=== PATIENT | male | born 1995 | race Two or more races ===

== ENCOUNTER 2017-06-05 23:19 | Emergency (ER) | payer MEDICAID, OTHER ==
[~2017-06-05] VITALS: Ht 188 cm; Wt 132.4 kg
[~2017-06-05 23:19] MED LIST: IBUPROFEN600 MG ORAL; MECLIZINE HCL25 MG ORAL; NKM; TRAMADOL HCL50 MG ORAL; ZOFRAN4 M1 ORAL
[2017-06-06] MEDS ORDERED: BACTRIM DS TAB1 EAC1 ORAL
[2017-06-06] MEDS ORDERED: BACTROBAN CR1 APPLIC TOPIC
--- NOTE | 2017-06-06 00:01 | Emergency Room Report ---
History of Present Illness General Chief Complaint: Skin Rash/Abscess Source: Patient Present Illness HPI Is a 22-year-old male with no past medical history. He presents with a rash to his face. He has a full vergara. Has been ongoing for the last 3-4 days. Itching. No fever or chills but no nausea no vomiting. Never had this problem before. Allergies: Coded Allergies: No Known Allergies (Unverified , 02/25/14) Patient History Past Medical History: see triage record, old chart reviewed Past Surgical History: none Pertinent Family History: none Social History: Denies: smoking Immunizations: other Reviewed Nursing Documentation: PMH: Agreed, PSxH: Agreed Nursing Documentation-PMH Past Medical History: No Stated History Hx Neurological Problems: Yes - BRAIN CYST, 2011 Review of Systems Eye: Denies: blurred vision, eye pain ENT: Denies: ear pain, nose congestion, throat swelling Respiratory: Denies: cough, shortness of breath Cardiovascular: Denies: chest pain, palpitations Gastrointestinal: Denies: abdominal pain, diarrhea, nausea, vomiting Musculoskeletal: Denies: back pain, joint pain Skin: Denies: rash Neurological: Denies: headache, numbness Endocrine: Denies: increased thirst, increased urine Hematologic/Lymphatic: Denies: easy bruising All Other Systems: negative except mentioned in HPI Physical Exam Vital Signs Date Time Temp Pulse Resp B/P Pulse Ox O2 Delivery O2 Flow Rate FiO2 06/05/17 23:38 98.2 84 18 124/79 99 Room Air vitals normal Sp02 EP Interpretation: reviewed, normal General Appearance: well appearing, no apparent distress, alert Head: normocephalic, atraumatic Eyes: bilateral eye EOMI, bilateral eye PERRL ENT: hearing grossly normal, normal pharynx, other - folliculitis of face Neck: full range of motion, supple, no meningismus Respiratory: chest non-tender, lungs clear, normal breath sounds Cardiovascular #1: regular rate, rhythm, no murmur Gastrointestinal: normal bowel sounds, non tender, no mass, no organomegaly, no bruit, non-distended Musculoskeletal: back normal, gait/station normal, normal range of motion Psychiatric: mood/affect normal Skin: warm/dry Medical Decision Making Diagnostic Impression: Primary Impression: Folliculitis barbae ER Course Patient with folliculitis of the vergara area. Most likely MRSA. We'll discharge home with antibiotics. No abscess to I&D. Last Vital Signs Date Time Temp Pulse Resp B/P Pulse Ox O2 Delivery O2 Flow Rate FiO2 06/05/17 23:38 98.2 84 18 124/79 99 Room Air Status: unchanged Disposition: HOME, SELF-CARE Condition: Stable Scripts Trimethoprim/Sulfamethoxazole 160/800* (BACTRIM DS TABLET*) 1 Each Tablet 1 TAB ORAL Q12H, #14 TAB 0 Refills Prov: CHEVY GARCIA M.D. 06/06/17 Mupirocin Calcium (Bactroban) 15 Gm Cream..g. 1 APPLIC TOPIC THREE TIMES A DAY, #30 GM Prov: CHEVY GARCIA M.D. 06/06/17 Additional Instructions: Follow up with your doctor in 7 days for recheck. Return if worse. CHEVY GARCIA M.D. Jun 06, 2017 00:01
[2017-06-06 00:19] VITALS: BP 125/79
[2017-06-06 00:20] VITALS: BP 125/79
== END 2017-06-06 00:20 | disposition home or self-care (01) ==
LOC: EMR 23:55
DX: L73.8 Other specified follicular disorders (principal)
CPT/HCPCS: 99284

== ENCOUNTER 2018-08-11 13:36 | Emergency (ER) | payer MEDICAID, OTHER ==
[~2018-08-11] VITALS: Ht 185.4 cm; Wt 136.1 kg
[~2018-08-11 13:36] MED LIST changes: +BACTRIM DS TAB1 EAC1 ORAL; +BACTROBAN CR1 APPLIC TOPIC
--- NOTE | 2018-08-11 14:34 | Emergency Room Report ---
History of Present Illness General Chief Complaint: General Complaint Source: Patient Present Illness HPI 23-year-old male presents emergency department complaining of constant 9 out of 10 in severity pressure/tightness headache in the forehead area 3 days. Patient also reports significant panic attack while driving 2 days ago. Patient states he's been having moderate anxiety regarding his panic attack as well as previous diagnosis of cyst in the brain over 6 years ago. The denies fevers, chills, recent head injury, denies nausea or vomiting. pt. denies hx of headaches. reports increased stress. pt. denies drug use. denies paresthesias, or unilateral weakness loss of gross motor movements. reports tunnel vision durring panic attack on thursday denies recurrent eye symptoms, denies loss of vision, floaters, flashing lights, blurred vision. Denies neck or back pain. pt. describes HILL as a tight band across the front/ forehead. Took tylenol with no relief of his symptoms. Allergies: Coded Allergies: No Known Allergies (Unverified , 02/25/14) Patient History Past Medical History: see triage record Past Surgical History: none Pertinent Family History: none Reviewed Nursing Documentation: PMH: Agreed; PSxH: Agreed Nursing Documentation-PMH Hx Neurological Problems: Yes Review of Systems All Other Systems: negative except mentioned in HPI Physical Exam Vital Signs Date Time Temp Pulse Resp B/P (MAP) Pulse Ox O2 Delivery O2 Flow Rate FiO2 08/11/18 13:44 98.7 90 20 158/71 97 Room Air 98.8 Sp02 EP Interpretation: reviewed, normal General Appearance: alert, GCS 15, non-toxic, mild distress Head: normocephalic, atraumatic Eyes: bilateral eye normal inspection, bilateral eye PERRL ENT: hearing grossly normal, normal voice Neck: full range of motion Respiratory: lungs clear, normal breath sounds, no respiratory distress, speaking full sentences Cardiovascular #1: regular rate, rhythm Musculoskeletal: back normal, gait/station normal, normal range of motion, non- tender Neurologic: alert, oriented x3, responsive, motor strength/tone normal, sensory intact, normal gait, speech normal, other - no pronator drift, no facial droop, no cerebellar abnormalities, no nystagmus, grossly normal Psychiatric: judgement/insight normal, anxious - overly anxious regarding his symptoms, and fear of recurring panic attack . Skin: normal color, no rash, warm/dry, well hydrated Medical Decision Making PA Attestation Dr. arguelles is my supervising Physician whom patient management has been discussed with. Diagnostic Impression: Primary Impression: Tension type headache Qualified Codes: G44.219 - Episodic tension-type headache, not intractable Additional Impression: Anxiousness ER Course 23-year-old male presents emergency department complaining of constant 9 out of 10 in severity pressure/tightness headache in the forehead area 3 days. Patient also reports significant panic attack while driving 2 days ago. Patient states he's been having moderate anxiety regarding his panic attack as well as previous diagnosis of cyst in the brain over 6 years ago. The denies fevers, chills, recent head injury, denies nausea or vomiting. pt. denies hx of headaches. reports increased stress. pt. denies drug use. denies paresthesias, or unilateral weakness loss of gross motor movements. reports tunnel vision durring panic attack on thursday denies recurrent eye symptoms, denies loss of vision, floaters, flashing lights, blurred vision. Denies neck or back pain. pt. describes HILL as a tight band across the front/ forehead. Took tylenol with no relief of his symptoms. Ddx considered but are not limited to migraine, SAH, Pseudomotor Cerebri,, Mass lesion, Cluster HILL, Tension HILL, Post lumbar puncture HILL , anxiety just to name a few. Vital signs: are WNL, pt. is afebrile H&PE are most consistent with Tension HILL and Anxiety regarding his symptoms. no focal neuro deficits. ORDERS: - none required at this time, dx is clinical. ED INTERVENTIONS: - Reglan PO -Excedrin Migraine PO -Ativan PO pt reports his symptoms have improved. Pt. has no active rx's in the last 6 months for controlled substances according to [facility] report -I do not identify an emergent condition at this time. With current presentation , pt. is stable for close outpatient follow up and conservative treatment. D/ w pt. to return promptly to ED with worsening or new symptoms.- Pt. verbalizes understanding and agreement with proposed treatment plan.proposed treatment plan. DISCHARGE: At this time pt. is stable for d/c to home. Will provide printed patient care instructions, and any necessary prescriptions. Care plan and follow up instructions have been discussed with the patient prior to discharge. Last Vital Signs Date Time Temp Pulse Resp B/P (MAP) Pulse Ox O2 Delivery O2 Flow Rate FiO2 08/11/18 13:44 98.7 90 20 158/71 97 Room Air 98.8 Disposition: HOME, SELF-CARE Condition: Stable Scripts Lorazepam* (ATIVAN*) 0.5 Mg Tablet 0.5 MG ORAL Q8HR, #5 TAB Prov: Sarai Asencio 08/11/18 Aspirin/Acetaminophen/Caffeine (EXCEDRIN MIGRAINE GELTAB) 1 Each Tablet 1 EACH PO Q6HR, #30 TAB Prov: Sarai Asencio 08/11/18 Referrals: [facility],REFERRING (PCP) Departure Forms: Return to Work Return to Work Date: Aug 13, 2018 Work Restrictions: None Return to Full Activity: Aug 13, 2018 Patient Instructions: Generalized Anxiety Disorder, Tension Headache Additional Instructions: Take medications as directed. Follow up with a Primary Care Provider in 3-5 days, even if your symptoms have resolved. --Please review list of primary care clinics, if you do not already have a primary care provider Return sooner to ED if new symptoms occur, or current symptoms become worse. Do not drink alcohol, drive, or operate heavy machinery while taking Ativan as this may cause drowsiness. - Please note that this Emergency Department Report was dictated using [employer] process administrator technology software, occasionally this can lead to erroneous entry secondary to interpretation by the dictation equipment. Sarai Asencio Aug 11, 2018 14:34
[2018-08-11] MEDS ORDERED: Metoclopramide 10mg/2ml Inj IM ONE (14:45)
[2018-08-11] MEDS ORDERED: Excedrin Migraine tab ORAL ONE (14:45)
[2018-08-11] MEDS ORDERED: LORazepam 1mg tab ORAL ONE (14:45)
[2018-08-11 16:07] VITALS: BP 147/89
[2018-08-11] MEDS ORDERED: ATIVAN0.5 MG ORAL (16:25)
[2018-08-11] MEDS ORDERED: EXCEDRIN MIGRA1 EACH PO (16:25)
[2018-08-11 16:35] VITALS: BP 147/89
== END 2018-08-11 16:35 | disposition home or self-care (01) ==
LOC: EMR 14:00
DX: G44.209 Tension-type headache, unspecified, not intractable (principal); F41.9 Anxiety disorder, unspecified
CPT/HCPCS: 99283; J2765

== ENCOUNTER 2019-12-10 12:47 | Emergency (ER) | payer OTHER ==
[~2019-12-10] VITALS: Ht 185.4 cm; Wt 111.6 kg
[~2019-12-10 12:47] MED LIST changes: +ATIVAN0.5 MG ORAL; +EXCEDRIN MIGRA1 EACH PO
--- NOTE | 2019-12-10 13:02 | NUR ---
ED Nurse Note: Pt walked in from home c/o left foot pain and swelling x 2 days. Pt said he ran 2 miles in non-running shoes. Pt denies trauma. Respirations even and unlabored on room air. Vitals stable as documented.
--- NOTE | 2019-12-10 13:11 | Emergency Room Report ---
History of Present Illness General Chief Complaint: Lower Extremity Injury Source: Patient Present Illness HPI 24-year-old male presents to the emergency department complaining of 7 out of 10 severity pain localized to the left lateral aspect of the left foot x2 days. Patient reports acute onset after running 2 miles in shoes that were a flat bottom and not specific running shoes. Patient reports pain was more severe the next day he states he has pain with attempts to ambulate or bear weight. He denies appreciable trauma or fall otherwise. Denies bruising, erythema, open wounds. Denies numbness tingling or loss of sensation or gross motor movements of the extremity, Denies calf pain. Has not taken anything for his pain. Allergies: Coded Allergies: No Known Allergies (Unverified , 02/25/14) Patient History Past Medical History: see triage record Past Surgical History: none Pertinent Family History: none Reviewed Nursing Documentation: PMH: Agreed; PSxH: Agreed Nursing Documentation-PMH Past Medical History: No Stated History Hx Neurological Problems: Yes Review of Systems All Other Systems: negative except mentioned in HPI Physical Exam Vital Signs Date Time Temp Pulse Resp B/P (MAP) Pulse Ox O2 Delivery O2 Flow Rate FiO2 12/10/19 12:56 98.1 87 16 141/84 (103) 95 Room Air Sp02 EP Interpretation: reviewed, normal General Appearance: no apparent distress, alert, GCS 15, non-toxic Head: normocephalic, atraumatic Eyes: bilateral eye normal inspection, bilateral eye PERRL ENT: hearing grossly normal, normal voice Neck: full range of motion Respiratory: lungs clear, normal breath sounds, speaking full sentences Cardiovascular #1: regular rate, rhythm, normal capillary refill Cardiovascular #2: 2+ dorsalis pedis (L) Musculoskeletal: normal range of motion, gait/station normal, tender - Lateral aspect of the left foot, plantar surface ttp, no heel ttp. no swelling or bruising. no visible obvious deformity. Neurologic: alert, motor strength/tone normal, oriented x3, sensory intact, responsive, speech normal Psychiatric: judgement/insight normal Skin: normal color, normal inspection Medical Decision Making PA Attestation Dr. Ross is my supervising Physician whom patient management has been discussed with. Diagnostic Impression: Primary Impression: Sprain of foot, left Qualified Codes: S93.602A - Unspecified sprain of left foot, initial encounter ER Course 24-year-old male presents to the emergency department complaining of 7 out of 10 severity pain localized to the left lateral aspect of the left foot x2 days. Patient reports acute onset after running 2 miles in shoes that were a flat bottom and not specific running shoes. Patient reports pain was more severe the next day he states he has pain with attempts to ambulate or bear weight. He denies appreciable trauma or fall otherwise. Denies bruising, erythema, open wounds. Denies numbness tingling or loss of sensation or gross motor movements of the extremity, Denies calf pain. Has not taken anything for his pain. Ddx considered but are not limited to Fracture, dislocation, contusion, Sprain/ Strain/Spasm, Plantar fasciitis, tendonitis just to name a few. Vital signs: are WNL, pt. is afebrile H&PE are most consistent with musculoskeletal injury will perform imaging to r/ o fractures/dislocations. ORDERS: - X-ray Left Foot 3 views - negative for fx, Dislocation, or significant soft tissue injury, per preliminary read in ED, and signed by ALMA Asencio , my supervising physician has reviewed, and agrees with my interpretation. ED INTERVENTIONS: - IBU 600mg PO -Jaya wrap applied to the left foot by satellite technician. Pt. remains neurovascularly intact. -Patient is provided with crutches and instructed on their use DISCHARGE: At this time pt. is stable for d/c to home. Will provide printed patient care instructions, and any necessary prescriptions. Care plan and follow up instructions have been discussed with the patient prior to discharge. Other X-Ray Diagnostic Results Other X-Ray Diagnostic Results : X-Ray ordered: Left Foot # of Views/Limited Vs Complete: 3 View Indication: Pain EP Interpretation: Yes ALMA Xray: Interpretation reviewed, by supervising MD, and agrees with findings. Interpretation: no dislocation, no soft tissue swelling, no fractures Impression: No acute disease Electronically Signed by: Sarai Asencio PA-C Last Vital Signs Date Time Temp Pulse Resp B/P (MAP) Pulse Ox O2 Delivery O2 Flow Rate FiO2 12/10/19 12:56 98.1 87 16 141/84 (103) 95 Room Air Status: improved Disposition: HOME, SELF-CARE Condition: Stable Scripts Ibuprofen* (MOTRIN*) 600 Mg Tablet 600 MG ORAL THREE TIMES A DAY, #30 TAB 0 Refills Prov: Sarai Asencio 12/10/19 Departure Forms: Return to Work Return to Work Date: Dec 13, 2019 Work Restrictions: No Heavy Lifting, No Prolonged Standing Other Restrictions: light duty. May return Sooner if Symptoms have resolved. Return to Full Activity: Dec 17, 2019 Patient Instructions: Foot Sprain Additional Instructions: Take medications as directed. Follow up with a Primary Care Provider in 3-5 days, even if your symptoms have resolved. Return sooner to ED if new symptoms occur, or current symptoms become worse. - Please note that this Emergency Department Report was dictated using [employer] master technology software, occasionally this can lead to erroneous entry secondary to interpretation by the dictation equipment. Sarai Asencio Dec 10, 2019 13:11
[2019-12-10] MEDS ORDERED: IBUPROFEN600 MG ORAL (14:14)
--- NOTE | 2019-12-10 14:20 | NUR ---
ER DISCHARGE NOTE: Patient is cleared to be discharged per ERMD, pt is aox4, on room air, with stable vital signs as documented. pt was given dc and prescription instructions and able to verbalize understanding, pt id band removed. pt's ankle wrapped and crutches given to pt. Instructions on how to use crutches given. pt taking all belongings.
[2019-12-10 14:24] VITALS: BP 134/74
--- NOTE | 2019-12-10 15:23 | Diagnostic Imaging Report ---
EXAM: XR Left Foot Complete, 3 or More Views CLINICAL HISTORY: PAIN TECHNIQUE: Frontal, lateral and oblique views of the left foot. COMPARISON: None FINDINGS: Bones/joints: No displaced fracture or dislocation identified. Joint space is maintained. No bony lesion. Soft tissues: Normal. IMPRESSION: No displaced fracture or dislocation identified.
== END 2019-12-10 14:25 | disposition home or self-care (01) ==
LOC: EMR 13:00
DX: S93.602A Unspecified sprain of left foot, initial encounter (principal); Y93.02 Activity, running; Y92.9 Unspecified place or not applicable
CPT/HCPCS: 73630; Z7502; 99283

== ENCOUNTER 2020-05-03 21:08 | Emergency (ER) | payer OTHER ==
[~2020-05-03] VITALS: Ht 185.4 cm; Wt 115.2 kg
[2020-05-03 21:20] VITALS: BP 120/76
[2020-05-03] MEDS ORDERED: DiphenhydrAMINE 50mg/ml Inj IVP ONE (21:30)
[2020-05-03] MEDS ORDERED: Ketorolac 30mg Inj IV ONE (21:30)
--- NOTE | 2020-05-03 21:56 | Emergency Room Report ---
History of Present Illness General Chief Complaint: Headache Present Illness HPI Disclaimer: Please note that this report is being documented using [employer] technology. This can lead to erroneous entry secondary to incorrect interpretation by the dictating instrument. HPI: 25-year-old male presents from home due to frontal headache. He states he is had a migraine for the past day. He reports a history of migraines also reports a history of "a brain cyst" this was diagnosed 7 years ago. Does report some dizziness no nausea vomiting fevers or trauma. Pain is 8 out of 10. Nonradiating. He did not take any medications prior to arrival. PMH: Migraine, brain cyst PSH: Reviewed Social Hx: Denies smoking drinking or illicit drug use (Star White M.D.) Allergies: Coded Allergies: No Known Allergies (Unverified , 02/25/14) COVID-19 Screening Contact w/high risk pt: No Recent Travel to affected area: No Experienced COVID-19 symptoms?: No COVID-19 Testing performed DIAL PRINTER: No (Star White M.D.) Patient History Reviewed Nursing Documentation: PMH: Agreed; PSxH: Agreed (Star White M.D.) Nursing Documentation-PMH Hx Neurological Problems: Yes (Star White M.D.) Review of Systems All Other Systems: negative except mentioned in HPI (Star White M.D.) Physical Exam Vital Signs Date Time Temp Pulse Resp B/P (MAP) Pulse Ox O2 Delivery O2 Flow Rate FiO2 05/03/20 21:13 99.1 120 18 120/76 (91) 97 Room Air Sp02 EP Interpretation: reviewed, normal General Appearance: well appearing, no apparent distress Head: normocephalic, atraumatic Eyes: bilateral eye PERRL, bilateral eye EOMI ENT: hearing grossly normal, moist mucus membranes Neck: full range of motion, supple Respiratory: lungs clear, normal breath sounds, no rhonchi, no respiratory distress, no retraction, no wheezing Cardiovascular #1: normal peripheral pulses, regular rate, rhythm, no murmur Gastrointestinal: non tender, soft, non-distended, no guarding Neurologic: alert, motor strength/tone normal, military personnel specialist III-XII nml as tested, oriented x3, sensory intact, cerebellar normal, normal gait, no focal defects Skin: normal color, warm/dry (Star White M.D.) Medical Decision Making Diagnostic Impression: Primary Impression: Headache ER Course MDM: Differential diagnosis included but not limited to migraine headache, dehydration, anxiety, meningioma to name a few Clinical course-patient neurologically intact on exam no acute distress, did not take any medications prior to arrival still migraine cocktail was ordered. Fluids given. CT scan of the brain ordered due to his history of "brain cyst" Plan-patient signed out to oncoming physician to follow-up on CT scan and reassess patient (Star White M.D.) ER Course Patient signed out to me approximately 10 PM from previous provider. Briefly, this a 25-year-old male presenting for evaluation of headaches. Patient has a history of migraines and unspecified intracranial cyst. At the time of signout a CT scan of the head was pending which is now returned. 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 Patient received migraine cocktail and is feeling better. Likely, a migraine headache. Will discharge home to follow-up with his PMD and neurologist. (Peng Jovel MD) CT/MRI/US Diagnostic Results CT/MRI/US Diagnostic Results : Impression Final Report EXAM: CT Head Without Intravenous Contrast CLINICAL HISTORY: PAIN TECHNIQUE: Axial computed tomography images of the head/brain without intravenous contrast. CTDI is 53.4 mGy and DLP is 987.7 mGy-cm. One or more of the following dose reduction techniques were used: automated exposure control, adjustment of the mA and/or kV according to patient size, use of iterative reconstruction technique. COMPARISON: 03/21/15 FINDINGS: Brain: Prominent CSF space in the posterior fossa which is likely related to a daquan-cisterna magna. This has a similar appearance compared to the prior exam. No hemorrhage. No significant white matter disease. Ventricles: Unremarkable. Bones/joints: Unremarkable. No acute fracture. Soft tissues: Unremarkable. Sinuses: Areas of mild mucosal thickening in the paranasal sinuses. Mastoid air cells: Unremarkable as visualized. No mastoid effusion. IMPRESSION: No CT evidence for acute intracranial abnormality. Radiologist: Suhail Hsu M.D. Electronically Signed: 05/03/20 22:44 Study ready at 22:06 and initial results transmitted at 22:44 (Peng Jovel MD) Last Vital Signs Date Time Temp Pulse Resp B/P (MAP) Pulse Ox O2 Delivery O2 Flow Rate FiO2 05/03/20 21:13 99.1 120 18 120/76 (91) 97 Room Air (Star White M.D.) Referrals: NON PHYSICIAN (PCP) Star White M.D. May 03, 2020 21:56 Peng Jovel MD May 03, 2020 22:48
[2020-05-03 22:30] VITALS: BP 116/79
--- NOTE | 2020-05-03 22:44 | Diagnostic Imaging Report ---
EXAM: CT Head Without Intravenous Contrast CLINICAL HISTORY: PAIN TECHNIQUE: Axial computed tomography images of the head/brain without intravenous contrast. CTDI is 53.4 mGy and DLP is 987.7 mGy-cm. One or more of the following dose reduction techniques were used: automated exposure control, adjustment of the mA and/or kV according to patient size, use of iterative reconstruction technique. COMPARISON: 03/21/15 FINDINGS: Brain: Prominent CSF space in the posterior fossa which is likely related to a daquan-cisterna magna. This has a similar appearance compared to the prior exam. No hemorrhage. No significant white matter disease. Ventricles: Unremarkable. Bones/joints: Unremarkable. No acute fracture. Soft tissues: Unremarkable. Sinuses: Areas of mild mucosal thickening in the paranasal sinuses. Mastoid air cells: Unremarkable as visualized. No mastoid effusion. IMPRESSION: No CT evidence for acute intracranial abnormality.
[2020-05-03 23:00] VITALS: BP 118/73
== END 2020-05-03 23:00 | disposition home or self-care (01) ==
LOC: EMR 21:15
DX: R51 Headache (principal); G93.0 Cerebral cysts
CPT/HCPCS: 70450; 96361; 96374; 96375; J0780; J1200; J1885; J7030; Z7502; 99284